=== PATIENT | male | born 1945 | race Caucasian/White ===

== ENCOUNTER 2017-04-08 17:54 | Emergency (ER) | payer MEDICARE, OTHER ==
[~2017-04-08] VITALS: Ht 180.3 cm; Wt 110.0 kg
[2017-04-08] MEDS ORDERED: HYDR12.529 PO (18:01)
[2017-04-08 18:51] LABS: BASOPHILS % 0.9 % (0.0-2.0); EOSINOPHILS % 1.9 % (0.0-5.0); HEMATOCRIT. 48.6 % (42.0-52.0); HEMOGLOBIN. 16.9 g/dL (14.0-18.0); LYMPHOCYTES % 22.3 % (20.0-50.0); MEAN CORPUSCULAR HEMOGLOBIN 32.4 pg (28.0-32.0); MEAN PLATELET VOLUME 7.7 fl (7.4-10.4); NEUTROPHILS % 62.9 % (40.0-76.0); PLATELET 286 x1000/uL (130-400); RED BLOOD CELL COUNT 5.22 mill/uL (4.7-6.1)
[2017-04-08 18:54] LABS: CHLORIDE 101 mEq/L (98-107)
[2017-04-08 18:58] LABS: PARTIAL THROMBOPLASTIN TIME 26.4 sec (23.4-31.0); PROTHROMBIN TIME 10.1 sec (9.4-11.6)
[2017-04-08 19:02] LABS: CARBON DIOXIDE 31 mEq/L (21-32)
[2017-04-08 19:04] LABS: TROPONIN I < 0.02 ng/mL (0.00-0.04)
[2017-04-08 21:30] VITALS: BP 138/79
== END 2017-04-08 21:45 | disposition left against medical advice (07) ==
LOC: ER 18:23
DX: G45.9 Transient cerebral ischemic attack, unspecified (principal); I10 Essential (primary) hypertension
CPT/HCPCS: 36415; 70450; 71010; 80053; 83690; 84484; 85025; 85610; 85730; 93005; 99285